=== PATIENT | female | born 1995 | race Caucasian/White ===

== ENCOUNTER 2018-05-13 11:53 | Emergency (ER) | payer OTHER, SELFPAY ==
[2018-05-13 11:59] VITALS: BP 123/73; PULSE 103; RESP 15; TEMP 36.7; O2SAT 100; BMI 25.0
--- NOTE | 2018-05-13 12:48 | ED.NAVMDI ---
HPI - Nausea/Vomiting/Diarrhea <SYLWIA Bentley - Last Filed: 05/13/18 22:06> General Chief complaint: Nausea/Vomiting/Diarrhea Stated complaint: black stuff in vomit Time Seen by Provider: 05/13/18 12:19 Source: patient Mode of arrival: ambulatory Limitations: no limitations History of Present Illness HPI Narrative: 22-year-old healthy female that is a nonsmoker here for complaint of having nausea vomiting and some dark emesis over the past couple of days. She reports that she had 2-3 episodes of vomiting this morning that did resolve towards the into the morning. She has had a positive p.o. intake since that timeframe is tolerating fluids. She is currently 17 weeks she is 1. She denies any vaginal bleeding or discharge. No abdominal pain or cramping. She was sent here by OBGYN at the [facility] for further evaluation due to having some dark emesis. She denies any urinary symptoms. No fevers no chills. She denies any alcohol or drug use. No other concerns or complaints at this timeframe. She denies any ibuprofen use. MD complaint: nausea and vomiting Related Data Previous Rx's Medication Instructions Recorded omeprazole 40 mg PO DAILY #14 cap 05/13/18 ondansetron 4 mg PO BID-TID PRN #15 tab 05/13/18 Allergies Allergy/AdvReac Type Severity Reaction Status Date / Time No Known Drug Allergies Allergy Verified 05/13/18 11:59 Review of Systems <SYLWIA Bentley - Last Filed: 05/13/18 22:06> Constitutional Denies chills, Denies fever(s), Denies lethargy and Denies weakness Eyes Denies change in vision, Denies eye discharge, Denies irritation and Denies loss of vision ENT Ears, Nose, Mouth, and Throat: Denies change in voice, Denies neck pain and Denies sore throat Cardiovascular Denies chest pain, Denies irregular heart rhythm, Denies lightheadedness, Denies palpitations, Denies dyspnea, Denies dyspnea on exertion and Denies orthopnea Respiratory Denies cough, Denies dyspnea, Denies dyspnea on exertion and Denies wheezing Gastrointestinal Comments: Nausea vomiting with dark emesis this morning Genitourinary Denies hematuria, Denies flank pain, Denies urinary incontinence and Denies urinary urgency Musculoskeletal Denies neck pain Integumentary/Breasts Denies pruritus, Denies erythema, Denies rash and Denies wounds Neurologic Denies confusion, Denies loss of vision and Denies weakness Psychiatric Denies anxiety, Denies confusion, Denies depression, Denies homicidal ideation and Denies suicidal ideation Endocrine Denies palpitations Hematologic/Lymphatic Denies easy bruising Allergic/Immunologic Denies wheezing PFSH <SYLWIA Bentley - Last Filed: 05/13/18 22:06> Social History Smoking Status: Never smoker Social History Smoking Status: Never smoker Exam <SYLWIA Bentley - Last Filed: 05/13/18 22:06> Initial Vital Signs Initial Vital Signs: Vital Signs Temperature 98.1 F 05/13/18 11:59 Pulse Rate 103 H 05/13/18 11:59 Respiratory Rate 15 05/13/18 11:59 Blood Pressure 123/73 05/13/18 11:59 Pulse Oximetry 100 05/13/18 11:59 Const General: cooperative and well developed Nutritional Appearance: well nourished Orientation: alert, awake, oriented x3 and not confused HENOR Mouth: oral mucosae normal and moist mucous membranes Throat: posterior oropharynx normal Eyes Conjunctivae: conjunctivae normal Sclera: sclerae normal Pupils: PERRL EOM: EOM intact bilaterally Resp Effort & Inspection: normal respiratory effort, able to speak in complete sentences, no respiratory distress and no use of accessory muscles Auscultation: clear to auscultation bilaterally, no rales, no rhonchi and no wheezes Cardio Rate: regular rate Rhythm: regular rhythm Heart Sounds: no click, no gallops, no murmurs and no rubs Pulses: normal peripheral pulses GI Inspection: non-distended Palpation: soft, no hepatosplenomegaly, No guarding, No pulsatile mass and No tender Auscultation: normal bowel sounds General: No CVA tenderness Skin General: no rashes or lesions noted, No jaundice and No petechiae Neuro General: alert, oriented x3, gait normal and no focal motor deficits Speech: speech normal Extrem General: full ROM, no clubbing, cyanosis or edema, no pedal edema and no calf tenderness <Randy Irby DO - Last Filed: 05/17/18 18:43> Initial Vital Signs Initial Vital Signs: Vital Signs Temperature 98.1 F 05/13/18 11:59 Pulse Rate 103 H 05/13/18 11:59 Respiratory Rate 15 05/13/18 11:59 Blood Pressure 123/73 05/13/18 11:59 Pulse Oximetry 100 05/13/18 11:59 Course <SYLWIA Bentley - Last Filed: 05/13/18 22:06> Orders Ordered: ED Orders 05/13/18 13:10 Complete Blood Count AUTO DIFF Stat Comprehensive Metabolic Panel Stat Prothrombin Time INR Stat Vital Signs - 8 hr 05/13/18 14:34 Pulse Rate 82 Respiratory Rate 16 Blood Pressure [Left Arm] 107/58 L Pulse Oximetry 100 <Randy Irby DO - Last Filed: 05/17/18 18:43> Orders Ordered: ED Orders 05/13/18 13:10 Complete Blood Count AUTO DIFF Stat Comprehensive Metabolic Panel Stat Prothrombin Time INR Stat Vital Signs - 8 hr 05/13/18 14:34 Pulse Rate 82 Respiratory Rate 16 Blood Pressure [Left Arm] 107/58 L Pulse Oximetry 100 MDM - Nausea/Vomiting/Diarrhea <SYLWIA Bentley - Last Filed: 05/13/18 22:06> Lab Data Result diagrams: 05/13/18 13:10 05/13/18 13:10 Lab Results 05/13/18 05/13/18 05/13/18 Range/Units 13:10 13:10 13:10 WBC 8.4 (4.5-11.0) X10^3/uL RBC 4.15 (4.0-5.2) X10^6/uL Hgb 11.8 L (12.0-16.0) g/dL Hct 34.4 L (36-46) % MCV 82.9 (80-100) fL MCH 28.5 (26-34) PG MCHC 34.4 (30-36) % RDW 14.2 (11.6-14.8) % Plt Count 249 (150-400) X10^3/uL Neut % (Auto) 74.9 (50-75) % Lymph % (Auto) 18.6 L (25-40) % [place] % (Auto) 5.2 (3-14) % Eos % (Auto) 0.8 L (2-4) % Baso % (Auto) 0.5 (0-2) % Neut # (Auto) 6300 (8650-4513) /uL Lymph # (Auto) 1600 (2127-7103) /uL [place] # (Auto) 400 (0-900) /uL Eos # (Auto) 100 (0-450) /uL Baso # (Auto) 0 (0-100) /uL PT 11.1 (10.1-12.7) SECONDS INR 1.0 (0.9-1.3) Sodium 136 L (137-145) mmol/L Potassium 4.1 (3.4-5.1) mmol/L Chloride 104 (98-107) mmol/L Carbon Dioxide 24 (22-32) mmol/L BUN 6 L (7-17) mg/dL Creatinine 0.60 (0.52-1.04) mg/dL Estimated GFR > 60.0 (>60) mL/min BUN/Creatinine Ratio 10.0 (6-22) Glucose 95 (70-100) mg/dL Calcium 9.4 (8.4-10.2) mg/dL Total Bilirubin 0.2 (0.2-1.3) mg/dL AST 29 (14-36) IU/L ALT 41 (9-52) IU/L Alkaline Phosphatase 40 (38-126) U/L Total Protein 7.2 (6.3-8.2) g/dL Albumin 4.0 (3.5-5.0) g/dL Globulin 3.2 (1.7-4.1) g/dL Albumin/Globulin Ratio 1.3 (1.0-2.8) Urine Dip Bedside Urine Glucose Negative Bedside Urine Bilirubin - Negative Bedside Urine Ketone - Negative Urine Specific [place] 1.015 Bedside Urine Occult Blood - Negative Bedside Urine pH 7.0 Bedside Urine Protein - Negative Bedside Urine Urobilinogen - Negative Bedside Urine Nitrite - Negative Bedside Urine Leukocytes - Negative Esterase MDM Narrative Medical decision making narrative: CBC was obtained and shows a mild anemia. CBC otherwise unremarkable. Chemistry panel was obtained was unremarkable. INR was normal. heart tones were obtained and show heart rate of 154. Urinalysis was negative for urinary tract infection. Patient is tolerating p.o. intake at this timeframe. She is prescribed Zofran to help with any nausea vomiting most likely secondary to . Dark emesis may be due to a GI ulcer. She has prescribed omeprazole to help with symptoms. Follow up with OBGYN in the next few days for re-evaluation. If continued symptoms she may need to have endoscopy to rule out gastric ulcer. For any worsening symptoms return to the emergency room. <Randy Irby, DO - Last Filed: 05/17/18 18:43> Lab Data Lab Results 05/13/18 05/13/18 05/13/18 Range/Units 13:10 13:10 13:10 WBC 8.4 (4.5-11.0) X10^3/uL RBC 4.15 (4.0-5.2) X10^6/uL Hgb 11.8 L (12.0-16.0) g/dL Hct 34.4 L (36-46) % MCV 82.9 (80-100) fL MCH 28.5 (26-34) PG MCHC 34.4 (30-36) % RDW 14.2 (11.6-14.8) % Plt Count 249 (150-400) X10^3/uL Neut % (Auto) 74.9 (50-75) % Lymph % (Auto) 18.6 L (25-40) % [place] % (Auto) 5.2 (3-14) % Eos % (Auto) 0.8 L (2-4) % Baso % (Auto) 0.5 (0-2) % Neut # (Auto) 6300 (3526-0930) /uL Lymph # (Auto) 1600 (6122-7592) /uL [place] # (Auto) 400 (0-900) /uL Eos # (Auto) 100 (0-450) /uL Baso # (Auto) 0 (0-100) /uL PT 11.1 (10.1-12.7) SECONDS INR 1.0 (0.9-1.3) Sodium 136 L (137-145) mmol/L Potassium 4.1 (3.4-5.1) mmol/L Chloride 104 (98-107) mmol/L Carbon Dioxide 24 (22-32) mmol/L BUN 6 L (7-17) mg/dL Creatinine 0.60 (0.52-1.04) mg/dL Estimated GFR > 60.0 (>60) mL/min BUN/Creatinine Ratio 10.0 (6-22) Glucose 95 (70-100) mg/dL Calcium 9.4 (8.4-10.2) mg/dL Total Bilirubin 0.2 (0.2-1.3) mg/dL AST 29 (14-36) IU/L ALT 41 (9-52) IU/L Alkaline Phosphatase 40 (38-126) U/L Total Protein 7.2 (6.3-8.2) g/dL Albumin 4.0 (3.5-5.0) g/dL Globulin 3.2 (1.7-4.1) g/dL Albumin/Globulin Ratio 1.3 (1.0-2.8) Urine Dip Bedside Urine Glucose Negative Bedside Urine Bilirubin - Negative Bedside Urine Ketone - Negative Urine Specific [place] 1.015 Bedside Urine Occult Blood - Negative Bedside Urine pH 7.0 Bedside Urine Protein - Negative Bedside Urine Urobilinogen - Negative Bedside Urine Nitrite - Negative Bedside Urine Leukocytes - Negative Esterase Discharge Plan Departure Patient Disposition: Home Clinical Impression: Nausea and vomiting in Discharge Date/Time: 05/13/18 14:33 Interventions: ED Discharge Assessment Last Done: 05/13/18 14:34 Instructions: DI for Vomiting -- Adult Activity Restrictions/Additional Instructions: Laboratory results today show a mild anemia otherwise is unremarkable. A good heart beat was heard on the baby today. Urinalysis was negative for urinary tract infection. UR prescribed Zofran to help with the nausea and vomiting use as directed. You also prescribed omeprazole to help with anti acid affects just in case you have a gastric ulcer which the dark vomit may indicate. Follow up with OBGYN next few days for re-evaluation. If continued symptoms may need to have an endoscopy to rule out the ulcer. For any worsening symptoms return to the emergency room. Prescriptions: New omeprazole 40 mg capsule,delayed release(DR/EC) 40 mg PO DAILY Qty: 14 RF: 0 ondansetron 4 mg tablet,disintegrating 4 mg PO BID-TID PRN (Reason: nausea and vomiting) Qty: 15 RF: 0 Referrals: [facility] [Provider Group] <Randy Irby DO - Last Filed: 05/17/18 18:43> Cosign ED Attending Cierra Attestation: I was available for consultation during this patient's emergency department encounter
[2018-05-13 13:11] VITALS: BP 100/53; PULSE 83; RESP 16; O2SAT 100
[2018-05-13 13:22] LABS: Add Manual Diff / Slide Review NO; Basophils Absolute Auto 0 /uL (0-100); Basophils Percent Auto 0.5 % (0-2); Eosinophils Absolute Auto 100 /uL (0-450); Eosinophils Percent Auto 0.8 % (2-4); Hematocrit 34.4 % (36-46); Hemoglobin 11.8 g/dL (12.0-16.0); Lymphocytes Absolute Auto 1600 /uL (1100-4500); Lymphocytes Percent Auto 18.6 % (25-40); Mean Corpuscular HGB Conc 34.4 % (30-36); Mean Corpuscular Hemoglobin 28.5 PG (26-34); Mean Corpuscular Volume 82.9 fL (80-100); Monocytes Absolute Auto 400 /uL (0-900); Monocytes Percent Auto 5.2 % (3-14); Neutrophils Absolute Auto 6300 /uL (1500-7000); Neutrophils Percent Auto 74.9 % (50-75); Platelet Count 249 X10^3/uL (150-400); Red Blood Cell Count 4.15 X10^6/uL (4.0-5.2); Red Cell Distribution Width 14.2 % (11.6-14.8); White Blood Cell Count 8.4 X10^3/uL (4.5-11.0)
[2018-05-13 13:32] LABS: Prothrombin Time 11.1 SECONDS (10.1-12.7)
[2018-05-13 13:36] LABS: Alanine Aminotransferase 41 IU/L (9-52); Albumin Globulin Ratio 1.3 (1.0-2.8); Alkaline Phosphatase 40 U/L (38-126); Aspartate Aminotransferase 29 IU/L (14-36); Bilirubin Total 0.2 mg/dL (0.2-1.3); Blood Urea Nitrogen 6 mg/dL (7-17); Calcium 9.4 mg/dL (8.4-10.2); Carbon Dioxide 24 mmol/L (22-32); Chloride 104 mmol/L (98-107); Estimated Glomerular Filt Rate > 60.0 mL/min (>60); Globulin 3.2 g/dL (1.7-4.1); Glucose 95 mg/dL (70-100); HEMOLYSIS < 15 (0-50); Potassium 4.1 mmol/L (3.4-5.1); Sodium 136 mmol/L (137-145); Total Protein 7.2 g/dL (6.3-8.2)
[2018-05-13 14:34] VITALS: BP 107/58; PULSE 82; RESP 16; O2SAT 100
== END 2018-05-13 14:33 | disposition home or self-care (01) ==
PROVIDERS: Emergency Provider Nurse Practitioner Family
DX: O21.8 Other vomiting complicating pregnancy (principal); Z3A.17 17 weeks gestation of pregnancy
CPT/HCPCS: 36415; 80053; 81003; 85025; 85610; 99283